=== PATIENT | male | born 1975 | race Caucasian/White ===

== ENCOUNTER 2018-11-15 19:18 | Emergency (ER) | payer OTHER, MEDICAID ==
[~2018-11-15] VITALS: Ht 175.3 cm; Wt 124.1 kg
[2018-11-15 19:24] VITALS: Ht 175.3 cm; Wt 124.1 kg
[2018-11-15] MEDS ORDERED: INVEGA 3 MG ER T3 MG PO (19:26)
[2018-11-15] MEDS ORDERED: GLUCOPHAGE500 MG PO (19:26)
[2018-11-15] MEDS ORDERED: VITAMIN D250000 UNIT PO (19:27)
[2018-11-15] MEDS ORDERED: TRAZODONE HCL150 MG PO (19:27)
[2018-11-15] MEDS ORDERED: BUPROPION XL150 MG PO (19:28)
[2018-11-15] MEDS ORDERED: LEVOXYL50 MCG PO (19:28)
[2018-11-15] MEDS ORDERED: ZOCOR20 MG PO (19:28)
[2018-11-15] MEDS ORDERED: NEURONTIN600 MG PO (19:29)
[2018-11-15] MEDS ORDERED: OMEPRAZOLE40 MG PO (19:29)
[2018-11-15] MEDS ORDERED: BENICAR20 MG PO (19:29)
[2018-11-15 20:19] LABS: BASOPHILS 0.1 % (0-2); EOSINOPHILS 0.9 % (0-7); HEMATOCRIT 40.9 % (42.0-54.0); HEMOGLOBIN 14.5 g/dL (13.5-17.5); IMMATURE GRANULOCYTES 0.5 % (0-5); MCH 31.1 pg (26.0-34.0); MCHC 35.5 g/dL (31.0-37.0); MCV 87.8 fL (80.0-100.0); MEAN PLATELET VOLUME 9.7 fL (7.4-10.4); MONOCYTES 9.4 % (2-11); NEUTROPHILS 63.1 % (40-80); PLATELET COUNT 158 10x3/uL (130-400); RBC 4.66 10x6/uL (4.20-6.10); RDW 12.6 % (11.5-14.5); WBC 9.9 10x3/uL (4.8-10.8)
[2018-11-15 20:36] LABS: ALBUMIN 3.3 g/dL (3.4-5.0); ALKALINE PHOSPHATASE 68 U/L (46-116); ALT (SGPT) 22 U/L (10-68); BILIRUBIN - TOTAL 0.24 mg/dL (0.2-1.3); CALC OSMOLALITY 268 mosm/kg (275-300); CALCIUM 8.5 mg/dL (8.5-10.1); CARBON DIOXIDE 28.5 mmol/L (21.0-32.0); CHLORIDE - SERUM 98 mmol/L (98-107); CREATININE - SERUM 0.8 mg/dL (0.6-1.3); GLUCOSE 109 mg/dL (74-106); POTASSIUM - SERUM 4.2 mmol/L (3.5-5.1); PROTEIN - SERUM 6.8 g/dL (6.4-8.2); SODIUM 135 mmol/L (136-145); UREA NITROGEN 8 mg/dL (7-18); eGFR NON AFRICAN AMERICAN > 90 mL/min (90-120)
[2018-11-15] MEDS ORDERED: AUGMENTIN 875-11 TAB PO (20:50)
[2018-11-15] MEDS ORDERED: ALBUTEROL SULF8.5 GM INH (20:50)
[2018-11-15] MEDS ORDERED: GUAIFENESI100 MG/5 M PO (20:50)
[2018-11-15 21:56] VITALS: BP 110/66
== END 2018-11-15 21:56 | disposition home or self-care (01) ==
LOC: D.ER 19:18
PROVIDERS: Family Medicine
DX: J06.9 Acute upper respiratory infection, unspecified (principal); J40 Bronchitis, not specified as acute or chronic; R05 Cough

== ENCOUNTER 2018-12-08 16:21 | Emergency (ER) | payer OTHER, MEDICAID ==
[~2018-12-08] VITALS: Ht 175.3 cm; Wt 114.1 kg
[~2018-12-08 16:21] MED LIST: ALBUTEROL SULF8.5 GM INH; AUGMENTIN 875-11 TAB PO; BENICAR20 MG PO; BUPROPION XL150 MG PO; GLUCOPHAGE500 MG PO; GUAIFENESI100 MG/5 M PO; INVEGA 3 MG ER T3 MG PO; LEVOXYL50 MCG PO; NEURONTIN600 MG PO; OMEPRAZOLE40 MG PO; TRAZODONE HCL150 MG PO; VITAMIN D250000 UNIT PO; ZOCOR20 MG PO
[2018-12-08 16:30] VITALS: Ht 175.3 cm; Wt 114.1 kg
[2018-12-08 17:25] LABS: BASOPHILS 0.1 % (0-2); EOSINOPHILS 1.4 % (0-7); HEMOGLOBIN 13.9 g/dL (13.5-17.5); IMMATURE GRANULOCYTES 0.3 % (0-5); LYMPHOCYTES 32.1 % (15-50); MCH 31.3 pg (26.0-34.0); MCHC 36.6 g/dL (31.0-37.0); MCV 85.6 fL (80.0-100.0); MEAN PLATELET VOLUME 10.4 fL (7.4-10.4); MONOCYTES 7.5 % (2-11); NEUTROPHILS 58.6 % (40-80); PLATELET COUNT 128 10x3/uL (130-400); RBC 4.44 10x6/uL (4.20-6.10); RDW 12.7 % (11.5-14.5); WBC 7.2 10x3/uL (4.8-10.8)
[2018-12-08 17:39] LABS: ALBUMIN 2.9 g/dL (3.4-5.0); ALKALINE PHOSPHATASE 66 U/L (46-116); ALT (SGPT) 17 U/L (10-68); BILIRUBIN - TOTAL 0.26 mg/dL (0.2-1.3); CALC OSMOLALITY 261 mosm/kg (275-300); CALCIUM 8.1 mg/dL (8.5-10.1); CARBON DIOXIDE 25.7 mmol/L (21.0-32.0); CHLORIDE - SERUM 98 mmol/L (98-107); CREATININE - SERUM 0.8 mg/dL (0.6-1.3); GLUCOSE 89 mg/dL (74-106); MAGNESIUM - SERUM 1.5 mg/dL (1.8-2.4); PROTEIN - SERUM 6.3 g/dL (6.4-8.2); SODIUM 132 mmol/L (136-145); UREA NITROGEN 7 mg/dL (7-18); eGFR NON AFRICAN AMERICAN > 90 mL/min (90-120)
[2018-12-08 17:41] LABS: APPEARANCE CLEAR (CLEAR); BILIRUBIN NEGATIVE (NEGATIVE); COLOR YELLOW (YELLOW); GLUCOSE NEGATIVE (NEGATIVE); KETONE NEGATIVE (NEGATIVE); NITRITE NEGATIVE (NEGATIVE); PROTEIN NEGATIVE (NEGATIVE); UROBILINOGEN NORMAL (NORMAL)
[2018-12-08 17:47] LABS: UDS - AMPHET NEGATIVE QUAL (NEGATIVE); UDS - BARB NEGATIVE QUAL (NEGATIVE); UDS - BENZO NEGATIVE QUAL (NEGATIVE); UDS - COCAINE NEGATIVE QUAL (NEGATIVE); UDS - OPIATE NEGATIVE QUAL (NEGATIVE); UDS - PCP NEGATIVE QUAL (NEGATIVE); UDS - THC NEGATIVE QUAL (NEGATIVE)
[2018-12-08 20:03] VITALS: BP 117/73
== END 2018-12-08 20:04 | disposition home or self-care (01) ==
LOC: D.ER 16:21
PROVIDERS: Emergency Medicine
DX: F32.9 Major depressive disorder, single episode, unspecified (principal); R53.83 Other fatigue

== ENCOUNTER 2019-01-08 12:25 | Emergency (ER) | payer OTHER, MEDICAID ==
[~2019-01-08] VITALS: Ht 175.3 cm; Wt 117.9 kg
[2019-01-08 12:30] VITALS: Ht 175.3 cm; Wt 117.9 kg
[2019-01-08 13:19] LABS: BASOPHILS 0.1 % (0-2); EOSINOPHILS 1.1 % (0-7); HEMATOCRIT 38.2 % (42.0-54.0); HEMOGLOBIN 13.8 g/dL (13.5-17.5); LYMPHOCYTES 25.9 % (15-50); MCH 31.7 pg (26.0-34.0); MCHC 36.1 g/dL (31.0-37.0); MCV 87.6 fL (80.0-100.0); MEAN PLATELET VOLUME 9.8 fL (7.4-10.4); MONOCYTES 7.4 % (2-11); NEUTROPHILS 64.5 % (40-80); PLATELET COUNT 122 10x3/uL (130-400); RBC 4.36 10x6/uL (4.20-6.10); RDW 13.3 % (11.5-14.5); WBC 8.3 10x3/uL (4.8-10.8)
[2019-01-08] MEDS ORDERED: VOLTAREN75 MG PO (14:24)
[2019-01-08] MEDS ORDERED: MECLIZINE HCL25 MG PO (14:24)
[2019-01-08] MEDS ORDERED: BACLOFEN20 M1 PO (14:25)
[2019-01-08 14:59] VITALS: BP 124/61
== END 2019-01-08 15:00 | disposition home or self-care (01) ==
LOC: D.ER 12:25
PROVIDERS: Family Medicine
DX: M54.2 Cervicalgia (principal); M62.838 Other muscle spasm; R42 Dizziness and giddiness

== ENCOUNTER 2019-03-25 13:26 | Emergency (ER) | payer OTHER, MEDICAID ==
[~2019-03-25] VITALS: Ht 175.3 cm; Wt 109.5 kg
[~2019-03-25 13:26] MED LIST changes: +BACLOFEN20 M1 PO; +MECLIZINE HCL25 MG PO; +VOLTAREN75 MG PO
[2019-03-25 13:30] VITALS: Ht 175.3 cm; Wt 109.5 kg
[2019-03-25 14:00] LABS: BASOPHILS 0.1 % (0-2); EOSINOPHILS 0.5 % (0-7); HEMOGLOBIN 14.4 g/dL (13.5-17.5); IMMATURE GRANULOCYTES 0.4 % (0-5); MCH 32.7 pg (26.0-34.0); MCHC 34.3 g/dL (31.0-37.0); MCV 95.2 fL (80.0-100.0); MEAN PLATELET VOLUME 9.9 fL (7.4-10.4); MONOCYTES 8.3 % (2-11); NEUTROPHILS 64.7 % (40-80); RBC 4.41 10x6/uL (4.20-6.10); WBC 7.3 10x3/uL (4.8-10.8)
[2019-03-25 14:02] LABS: PLATELET COUNT 166 10x3/uL (130-400)
[2019-03-25 14:09] LABS: CALC OSMOLALITY 265 mosm/kg (275-300); CALCIUM 8.4 mg/dL (8.5-10.1); CHLORIDE - SERUM 96 mmol/L (98-107); CREATININE - SERUM 0.8 mg/dL (0.6-1.3); GLUCOSE 102 mg/dL (74-106); POTASSIUM - SERUM 4.1 mmol/L (3.5-5.1); SODIUM 134 mmol/L (136-145); UREA NITROGEN 8 mg/dL (7-18); eGFR NON AFRICAN AMERICAN > 90 mL/min (90-120)
[2019-03-25 14:24] LABS: ALBUMIN 3.3 g/dL (3.4-5.0); ALKALINE PHOSPHATASE 70 U/L (46-116); ALT (SGPT) 15 U/L (10-68); BILIRUBIN - TOTAL 0.33 mg/dL (0.2-1.3); CKMB 0.2 U/L (0.0-3.6); CREATINE KINASE 82 UL (21-232); MAGNESIUM - SERUM 1.8 mg/dL (1.8-2.4); PROTEIN - SERUM 7.1 g/dL (6.4-8.2); TROPONIN-I < 0.017 ng/mL (0.000-0.060)
[2019-03-25 14:29] LABS: APTT 30.6 SECONDS (22.8-39.4); INR 1.12 (0.85-1.17); PROTIME 13.9 SECONDS (11.6-15.0)
[2019-03-25] MEDS ORDERED: ZPAK PO (15:38)
[2019-03-25] MEDS ORDERED: STERAPRED DS 1010 MG PO (15:38)
[2019-03-25] MEDS ORDERED: MUCINEX DM ER1 EAC1 PO (15:38)
[2019-03-25 16:51] VITALS: BP 126/65
== END 2019-03-25 17:09 | disposition home or self-care (01) ==
LOC: D.ER 13:26
PROVIDERS: Family Medicine
DX: J06.9 Acute upper respiratory infection, unspecified (principal); J40 Bronchitis, not specified as acute or chronic; R06.02 Shortness of breath; R06.00 Dyspnea, unspecified; R07.9 Chest pain, unspecified; E11.9 Type 2 diabetes mellitus without complications; I10 Essential (primary) hypertension; Z72.0 Tobacco use; M19.90 Unspecified osteoarthritis, unspecified site; G89.29 Other chronic pain

== ENCOUNTER 2019-07-09 15:25 | Emergency (ER) | payer MEDICAID ==
[~2019-07-09] VITALS: Ht 175.3 cm; Wt 116.4 kg
[~2019-07-09 15:25] MED LIST changes: +MUCINEX DM ER1 EAC1 PO; +STERAPRED DS 1010 MG PO; +ZPAK PO
[2019-07-09 15:29] VITALS: BP 127/77; Ht 175.3 cm; Wt 116.4 kg
[2019-07-09 16:02] LABS: BASOPHILS 0.1 % (0-2); EOSINOPHILS 0 % (0-7); HEMATOCRIT 41.1 % (42.0-54.0); HEMOGLOBIN 14.2 g/dL (13.5-17.5); IMMATURE GRANULOCYTES 0.6 % (0-5); LYMPHOCYTES 22.5 % (15-50); MCH 32.4 pg (26.0-34.0); MCHC 34.5 g/dL (31.0-37.0); MCV 93.8 fL (80.0-100.0); MEAN PLATELET VOLUME 9.2 fL (7.4-10.4); MONOCYTES 7.8 % (2-11); RBC 4.38 10x6/uL (4.20-6.10); WBC 12.4 10x3/uL (4.8-10.8)
[2019-07-09 16:03] LABS: PLATELET COUNT 207 10x3/uL (130-400)
[2019-07-09 16:06] LABS: BILIRUBIN NEGATIVE (NEGATIVE); GLUCOSE NEGATIVE (NEGATIVE); KETONE NEGATIVE (NEGATIVE); NITRITE NEGATIVE (NEGATIVE); SPECIFIC GRAVITY 1.015 (1.005-1.020); UROBILINOGEN NORMAL (NORMAL)
[2019-07-09 16:10] LABS: UDS - AMPHET NEGATIVE QUAL (NEGATIVE); UDS - BARB NEGATIVE QUAL (NEGATIVE); UDS - BENZO NEGATIVE QUAL (NEGATIVE); UDS - COCAINE NEGATIVE QUAL (NEGATIVE); UDS - OPIATE NEGATIVE QUAL (NEGATIVE); UDS - PCP NEGATIVE QUAL (NEGATIVE); UDS - THC POSITIVE QUAL (NEGATIVE)
[2019-07-09 16:16] LABS: CALC OSMOLALITY 272 mosm/kg (275-300); CALCIUM 8.4 mg/dL (8.5-10.1); CARBON DIOXIDE 27.3 mmol/L (21.0-32.0); CHLORIDE - SERUM 102 mmol/L (98-107); CREATININE - SERUM 0.8 mg/dL (0.6-1.3); GLUCOSE 125 mg/dL (74-106); POTASSIUM - SERUM 3.9 mmol/L (3.5-5.1); SODIUM 137 mmol/L (136-145); UREA NITROGEN 7 mg/dL (7-18); eGFR NON AFRICAN AMERICAN > 90 mL/min (90-120)
[2019-07-09 16:19] LABS: ALBUMIN 3.2 g/dL (3.4-5.0); ALKALINE PHOSPHATASE 58 U/L (30-120); ALT (SGPT) 11 U/L (10-68); BILIRUBIN - TOTAL 0.22 mg/dL (0.2-1.3); MAGNESIUM - SERUM 2.1 mg/dL (1.8-2.4); PROTEIN - SERUM 7.2 g/dL (6.4-8.2)
--- NOTE | 2019-07-09 17:09 | NUR ---
DR. TALAVERA NOTIFIED AND REVIEWED PT'S BEHAVIOR AND ASSESSMENT RESULTS. PT IS A LOW RISK PER DR. TALAVERA. DR. TALAVERA STATED TO GIVE RESOURCES TO PT AT TIME OF DISCHARGE. NO FURTHER ORDERS AT THIS TIME. RESOURCES REVIEWED WITH PT AND HE VERBALIZED UNDERSTANDING.
== END 2019-07-09 18:42 | disposition home or self-care (01) ==
LOC: D.ER 15:25
PROVIDERS: Emergency Medicine
DX: F20.9 Schizophrenia, unspecified (principal); F41.9 Anxiety disorder, unspecified; E11.9 Type 2 diabetes mellitus without complications; I10 Essential (primary) hypertension; M54.9 Dorsalgia, unspecified; K21.9 Gastro-esophageal reflux disease without esophagitis; Z72.0 Tobacco use

== ENCOUNTER 2019-07-28 18:46 | Emergency (ER) | payer MEDICARE, MEDICAID ==
[~2019-07-28] VITALS: Ht 175.3 cm; Wt 116.4 kg
[2019-07-28 18:52] VITALS: Ht 175.3 cm; Wt 116.4 kg
[2019-07-28 19:27] LABS: BASOPHILS 0.1 % (0-2); EOSINOPHILS 0 % (0-7); HEMATOCRIT 42.1 % (42.0-54.0); HEMOGLOBIN 14.6 g/dL (13.5-17.5); IMMATURE GRANULOCYTES 0.3 % (0-5); LYMPHOCYTES 21.9 % (15-50); MCH 32.2 pg (26.0-34.0); MCHC 34.7 g/dL (31.0-37.0); MCV 92.7 fL (80.0-100.0); MEAN PLATELET VOLUME 8.8 fL (7.4-10.4); MONOCYTES 9.5 % (2-11); NEUTROPHILS 68.2 % (40-80); PLATELET COUNT 181 10x3/uL (130-400); RBC 4.54 10x6/uL (4.20-6.10); RDW 12.5 % (11.5-14.5); WBC 9.1 10x3/uL (4.8-10.8)
[2019-07-28 19:42] LABS: BILIRUBIN NEGATIVE (NEGATIVE); GLUCOSE NEGATIVE (NEGATIVE); KETONE NEGATIVE (NEGATIVE); NITRITE NEGATIVE (NEGATIVE); UROBILINOGEN NORMAL (NORMAL)
[2019-07-28 19:51] LABS: UDS - AMPHET NEGATIVE QUAL (NEGATIVE); UDS - BARB NEGATIVE QUAL (NEGATIVE); UDS - BENZO NEGATIVE QUAL (NEGATIVE); UDS - COCAINE NEGATIVE QUAL (NEGATIVE); UDS - OPIATE NEGATIVE QUAL (NEGATIVE); UDS - PCP NEGATIVE QUAL (NEGATIVE); UDS - THC NEGATIVE QUAL (NEGATIVE)
[2019-07-28 19:54] LABS: CALC OSMOLALITY 270 mosm/kg (275-300); CALCIUM 8.6 mg/dL (8.5-10.1); CARBON DIOXIDE 25.9 mmol/L (21.0-32.0); CHLORIDE - SERUM 101 mmol/L (98-107); CREATININE - SERUM 0.9 mg/dL (0.6-1.3); GLUCOSE 109 mg/dL (74-106); POTASSIUM - SERUM 3.8 mmol/L (3.5-5.1); SODIUM 135 mmol/L (136-145); UREA NITROGEN 13 mg/dL (7-18); eGFR NON AFRICAN AMERICAN > 90 mL/min (90-120)
[2019-07-28 20:07] LABS: APTT 28.9 SECONDS (22.8-39.4); INR 1.09 (0.85-1.17); PROTIME 14.1 SECONDS (11.6-15.0)
[2019-07-28 20:16] LABS: ALBUMIN 3.4 g/dL (3.4-5.0); ALKALINE PHOSPHATASE 69 U/L (30-120); ALT (SGPT) 18 U/L (10-68); CKMB 0.3 U/L (0.0-3.6); CREATINE KINASE 84 UL (21-232); MAGNESIUM - SERUM 1.8 mg/dL (1.8-2.4); PROTEIN - SERUM 7.5 g/dL (6.4-8.2)
[2019-07-28 20:21] LABS: TROPONIN-I < 0.017 ng/mL (0.000-0.060)
[2019-07-28] MEDS ORDERED: DEPAKOTE500 MG PO (20:48)
[2019-07-28] MEDS ORDERED: HYDROXYZINE HCL50 MG PO (20:53)
[2019-07-28] MEDS ORDERED: TOFRANIL25 MG PO (20:53)
--- NOTE | 2019-07-28 21:52 | NUR ---
DR TALAVERA NOTIFIED AND PT's BEHAVIOR AND ASSESSMENT RESULTS. PT IS A LOW RISK PER DR TALAVERA. DR TALAVERA STASTED TO GIVE RESOURCES TO PT AT TIME OF DISCHARGE. NO FURTHER ORDERS AT THIS TIME. RESOURCES REVIEWED WITH PT AND HE VERBALIZED UNDERSTANDING.
[2019-07-28 22:46] VITALS: BP 125/71
== END 2019-07-28 23:38 ==
LOC: D.ER 18:46
PROVIDERS: Emergency Medicine
DX: R45.851 Suicidal ideations (principal); E11.9 Type 2 diabetes mellitus without complications; E07.9 Disorder of thyroid, unspecified; I10 Essential (primary) hypertension; Z72.0 Tobacco use; K21.9 Gastro-esophageal reflux disease without esophagitis; R07.9 Chest pain, unspecified